=== PATIENT | male | born 1960 | race Caucasian/White ===

== ENCOUNTER 2019-12-20 15:45 | Emergency (ER) | payer MEDICAID ==
[~2019-12-20] VITALS: Ht 167.6 cm; Wt 90.7 kg
[2019-12-20 16:10] VITALS: BP 140/75
--- NOTE | 2019-12-20 17:11 | NUR ---
PT AMB TO CHAIR D WITH STEADY GAIT
--- NOTE | 2019-12-20 17:15 | NUR ---
C/O DRY COUGH X2 MONTHS. DENIES N/V/D/FEVER. STARTED LISINOPRIL NEW RX 2-3 MONTHS AGO. TICKLING SENSATION IN THROAT. NO PAIN. HX: HTN, HIGH CHOLESTEROL RX: [facility]
--- NOTE | 2019-12-20 17:25 | NUR ---
CARLOS LIZ EVALUATING PT AT THIS TIME
--- NOTE | 2019-12-20 17:50 | NUR ---
CARLOS LIZ SPEAKING W/ PT
[2019-12-20 17:54] VITALS: BP 140/75
--- NOTE | 2019-12-20 17:54 | NUR ---
Patient discharged with v/s stable. Written and verbal after care instructions given and explained. Patient alert, oriented and verbalized understanding of instructions. Ambulatory with steady gait. All questions addressed prior to discharge. ID band removed. Patient advised to follow up with PMD. Rx of DOUG TATE given. Patient educated on indication of medication including possible reaction and side effects. Opportunity to ask questions provided and answered.
== END 2019-12-20 17:54 | disposition home or self-care (01) ==
LOC: MED 15:45
DX: R05 Cough (principal); R07.0 Pain in throat; I10 Essential (primary) hypertension
CPT/HCPCS: 71046; 99283